=== PATIENT | female | born 1965 | race Caucasian/White ===

== ENCOUNTER 2024-03-22 20:06 | Emergency (ER) | payer OTHER, SELFPAY ==
[2024-03-22 20:09] VITALS: BP 165/101
[2024-03-22] MEDS: TYLENOL 1000 MG PO (21:20)
[2024-03-22] MEDS: TORADOL 30 MG IM (22:55)
--- NOTE | 2024-03-22 23:02 | ED.MUSCINJ ---
HPI-Injury
General
Chief Complaint: Fall
Time Seen by Provider: 03/22/24 22:06
History of Present Illness-Injury
Initial Injury comments:
58-year-old female with history of anxiety presenting to the emergency department after a fall. Patient reports prior to arrival she was walking into a sporting event. She tripped on the curb and struck her face to the right side. She also fell
on an outstretched right hand and injured her left knee. She also reports injury to the right ribs. She notes pain with deep inspiration. Denies loss of consciousness. She is not on any blood thinners. She denies chest pain or abdominal pain.
She denies any recent fever. She denies visual changes. She received Tylenol on arrival. She denies weakness or numbness to her extremities. She denies any prodromal symptoms to her fall such as dizziness or lightheadedness. She denies
additional acute medical complaints
Phy Exam
Physical Exam
Physical Exam:
General: Well-appearing, no clinical signs of dehydration, nontoxic and in no acute distress
HEENT: protecting airway,
Head: scant amount of swelling to the right cheek of the face. No asymmetry to the face. No abrasions or lacerations.
Neck: appears supple, no midline tenderness to the cervical spine
CV: Normal heart rate, regular rhythm
Resp: No accessory muscle use, no increased work of breathing, lungs clear to auscultation bilaterally. Reproducible tenderness to the mid axillary region of the inferior right rib angles. No crepitus.
Abd: Soft and non-distended, no tenderness to palpation
Extremities: No obvious deformity to the right hand, however there is bruising at the palmar aspect. Range of motion is grossly intact. Distal sensation and pulses intact. No obvious deformity to the left lower extremity. Obvious effusion above
the patella. Range of motion limited secondary to pain. No erythema or warmth.
Neuro: alert, no focal neurologic deficit
: deferred
Rectal: deferred
Psych: Normal affect
Skin: Intact
Injury Course
Orders/Labs/Results
Orders:
Orders
03/22/24 21:12
Acetaminophen [Tylenol] 1,000 mg .ROUTE .STK-MED ONE
03/22/24 21:19
CR Hand - Right Min 3 Views Urgent
Reason For Exam: fall, right hand pain
CR Knee - Left 4 Or More View* Urgent
Comment:
Reason For Exam: fall, left knee pain
Ribs, Right 3 View W/PA Chest [CR Ribs-right 3 Vw W/pa Chest*] Urgent
Comment:
Reason For Exam: fall, right rib injury
03/22/24 21:20
Acetaminophen [Tylenol] 1,000 mg PO NOW STA
03/22/24 22:49
Ketorolac [Toradol] 30 mg IM NOW STA
03/22/24 23:42
Knee Immobilizer Left-Treatmen ONCE
Splints/Slings/Crut- Treatment ONCE
MDM/Problems Addressed
MDM/Problems Addressed:
58-year-old female with history of anxiety presenting after a fall with multiple musculoskeletal injuries. Vital signs on arrival are significant for hypertension.
On exam, patient is well-appearing, alert, oriented, no acute distress. No obvious signs of trauma to the head. Patient is [place] head CT negative, without indication for CT brain imaging. Regarding musculoskeletal injuries, suspected rib
contusion. Rib fracture is a consideration. Plan for x-ray imaging. Lungs are clear to auscultation with lower suspicion for pneumothorax. Regarding her right hand injury, suspected tendinous injury, possible opponens pollicis. Range of motion
is grossly intact to the hand with lower suspicion for fracture. Will screen with x-ray imaging. Regarding the knee, suspected muscular versus tendinous injury. No obvious deformity. There is an effusion to the patella region, so will obtain
x-ray imaging as well. Toradol and Tylenol ministered for pain.
23:50 - Patient's x-rays are negative for acute fracture or dislocations. For rib contusion, will provide incentive spirometry. For right hand, will place in a wrist splint. And for the knee, will place in a knee immobilizer for concern of
tendinous injury. Will provide crutches. Plan for outpatient orthopedic follow-up and continued outpatient supportive therapy. Otherwise feel stable for discharge. Return precautions discussed and patient verbalized understanding
*Critical Care Note
Total Time (30-74mins, 75-104mins- exclusive of procedures): Not Applicable
ED Attending Note
-
Portions of this chart may have been created with voice recognition software.� Occasional wrong word or��sound alike� substitutions may have occurred due to the inherent limitations of voice recognition software.
Discharge Plan
Departure
Referrals:
Saloni Freeman MD [Family Provider] -
Interventions
Interventions:
*Risk Screen - Suicide Last Done: 03/22/24 22:57
*General Assessment Last Done: 03/22/24 22:57
*Neglect/Abuse Screening Last Done: 03/22/24 22:57
ED- Fall Risk Assessment Last Done: 03/22/24 23:07
*ED COVID-19 Vaccine History Last Done: 03/22/24 22:57
ED-Musculoskeletal Assessment Last Done: 03/22/24 23:07
ED- Neurological Assessment Last Done: 03/22/24 23:07
ED-Skin Assessment Last Done: 03/22/24 23:07
Discharge Date and Time
Print Language: BULGARIAN
== END 2024-03-23 00:48 | disposition home or self-care (01) ==
LOC: EMR 20:06
PROVIDERS: EMERGENCY PHYSICIAN Student in an Organized Health Care Education/Training Program; FAMILY PHYSICIAN Obstetrics & Gynecology Gynecology
DX: M25.462 Effusion, left knee (principal); R22.0 Localized swelling, mass and lump, head; S60.221A Contusion of right hand, initial encounter; S20.219A Contusion of unspecified front wall of thorax, initial encounter; S29.9XXA Unspecified injury of thorax, initial encounter; R07.1 Chest pain on breathing; M25.562 Pain in left knee; W10.1XXA Fall (on)(from) sidewalk curb, initial encounter; Y93.01 Activity, walking, marching and hiking; Y92.89 Other specified places as the place of occurrence of the external cause; F41.9 Anxiety disorder, unspecified
CPT/HCPCS: 99284; 29505; 96372; 29125; 71101; 73130; 73564

== ENCOUNTER → 2024-06-18 06:40 | Outpatient (REF) | payer OTHER, SELFPAY | LOC: WDC 06:40 | PROVIDERS: ATTENDING PHYSICIAN Family Medicine | DX: Z12.31 Encounter for screening mammogram for malignant neoplasm of breast (principal) | CPT/HCPCS: 77063; 77067 ==

== ENCOUNTER → 2025-01-10 07:22 | Outpatient (REF) | payer BC, SELFPAY | LOC: RCS 07:22 | PROVIDERS: ATTENDING PHYSICIAN Family Medicine | DX: R01.1 Cardiac murmur, unspecified (principal) | CPT/HCPCS: 93306 ==